=== PATIENT | male | born 1950 | race Caucasian/White ===

== ENCOUNTER 2023-11-22 17:17 | Emergency (ER) | payer MEDICARE, SELFPAY ==
[2023-11-22 17:23] VITALS: PULSE 78; TEMP 36.5; O2SAT 96; BMI 26.4
[2023-11-22 17:32] LABS: Glucose Point of Care 302 mg/dL (70-110)
--- NOTE | 2023-11-22 18:55 | W.ED.FALL ---
HPI - Fall General: Chief Complaint: Fall Stated Complaint: fall(11/21/23), hand and feet numb Time Seen by Provider: 11/22/23 18:53 Course Vital Signs: Vital signs: Vital Signs Temperature 97.7 F 11/22/23 17:23 Pulse Rate 78 11/22/23 17:23 Pulse Oximetry 96 11/22/23 17:23 Oxygen Delivery Me thod Room Air 11/22/23 17:23 MDM - Fall Lab Data Laboratory Results POC Glucose 302 mg/dL (70-110) H 11/22/23 17:30 Discharge Plan Discharge Condition: Stable Coding Level of Care Code ED Boiler/Chiller Operator for Roopa Ortiz
--- NOTE | 2023-11-22 20:04 | ED_ITS ---
HPI - Fall 2 General: Chief Complaint: Fall Stated Complaint: fall(11/21/23), hand and feet numb Time Seen by Provider: 11/22/23 18:53 History of Present Illness: 73-year-old male patient comes in today at the urgency of his female significant other. Patient had fallen yesterday when he stumbled. Patient reports that he has been having some high blood sugars and some increased numbness in his feet and hands. Patient does have known diabetic neuropathy. Patient denies any other complaints. Patient reports no fever or chills or difficulty breathing. Patient appears nontoxic. Review of Systems 2 General: Reports: 10 or more systems reviewed and unremarkable except in HPI and below Physical Exam 2 Const: COMMON NORMALS: alert HENMT: COMMON NORMALS: normocephalic HEAD & SCALP: normocephalic Neck/C-Spine: COMMON NORMALS: full ROM Resp: COMMON NORMALS: normal respiratory effort and clear to auscultation bilaterally AUSCULTATION: clear to auscultation bilaterally Cardio: COMMON NORMALS: regular rate and regular rhythm RATE: regular rate RHYTHM: regular rhythm Back/Pelvis: COMMON NORMALS: thoracic and lumbar spine normal to inspection Extremity: COMMON NORMALS: full ROM Neuro: SENSORIUM/ORIENTATION: Yes alert Skin: COMMON NORMALS: turgor normal GENERAL SKIN EXAM: turgor normal Course 2 Vital Signs: Vital signs: Vital Signs Temperature 97.7 F 11/22/23 17:23 Pulse Rate 78 11/22/23 17:23 Pulse Oximetry 96 11/22/23 17:23 Oxygen Delivery Me thod Room Air 11/22/23 17:23 MDM - Fall Medical Decision Making 73-year-old male patient comes in today for complaints of numbness in his hands and feet and difficulty walking at times. Patient is also reports some increase in his blood glucose. On exam respirations are even lungs are clear to auscultation. Patient moves all extremities well. Equal strength in hands and feet are noted. Differential diagnosis includes but not limited to uncontrolled diabetes mellitus, diabetic ketoacidosis, diabetic neuropathy, anxiety about health. Laboratory values were unremarkable except for blood glucose of 300. Reviewed exam with patient with recommendations for adjustment of insulin with primary care. Recommend return to the ER for new concerns. Discussed the use of walker to prevent and help with falls. Lab Data 11/22/23 19:52 11/22/23 19:52 Laboratory Results WBC 9.01 10^3/uL (3.29-11.43) 11/22/23 19:52 RBC 5.58 10^6/uL (3.85-5.65) 11/22/23 19:52 Hgb 16.10 g/dL (11.27-16.99) 11/22/23 19:52 Hct 48.2 % (37-53) 11/22/23 19:52 MCV 86.4 fl (82-101) 11/22/23 19:52 MCH 28.9 pg (27-33) 11/22/23 19:52 MCHC 33.4 g/dL (30-55) 11/22/23 19:52 RDW 12.5 % (12.1-15.1) 11/22/23 19:52 Plt Count 335 10^3/cmm (157-399) 11/22/23 19:52 MPV 9.8 fL (7.4-10.4) 11/22/23 19:52 Neut % (Auto) 64.9 % 11/22/23 19:52 Lymph % (Auto) 22.1 % 11/22/23 19:52 [place] % (Auto) 8.1 % 11/22/23 19:52 Eos % (Auto) 3.4 % 11/22/23 19:52 Baso % (Auto) 1.2 % 11/22/23 19:52 Neut # (Auto) 5.84 10^3/uL (1.8-7.7) 11/22/23 19:52 Lymph # (Auto) 2.0 10^3/uL (0.8-4.8) 11/22/23 19:52 [place] # (Auto) 0.7 10^3/uL (0.2-0.9) 11/22/23 19:52 Eos # (Auto) 0.3 10^3/uL (0.0-0.8) 11/22/23 19:52 Baso # (Auto) 0.1 10^3/uL (0.0-0.1) 11/22/23 19:52 Nucleated RBC % (auto) 0 % 11/22/23 19:52 Nucleated RBCs # 0.0 /100WBC 11/22/23 19:52 Sodium 136 mmol/L (136-145) 11/22/23 19:52 Potassium 4.6 mmol/L (3.5-5.1) 11/22/23 19:52 Chloride 99 mmol/L (98-107) 11/22/23 19:52 Carbon Dioxide 24 mmol/L (22-29) 11/22/23 19:52 Anion Gap 17.6 (5-19) 11/22/23 19:52 BUN 22 mg/dL (8-23) 11/22/23 19:52 Creatinine 0.8 mg/dL (0.7-1.2) 11/22/23 19:52 GFR Calculation Not Reportable 11/22/23 19:52 Glucose 313 mg/dL (65-115) H 11/22/23 19:52 POC Glucose 302 mg/dL (70-110) H 11/22/23 17:30 Calculated Osmolality 297 mOsm/kg (285-295) H 11/22/23 19:52 Calcium 9.4 mg/dL (8.5-10.5) 11/22/23 19:52 Total Bilirubin 0.7 mg/dL (0.15-1.2) 11/22/23 19:52 AST 22 U/L (0-40) 11/22/23 19:52 ALT 23 U/L (0-41) 11/22/23 19:52 Alkaline Phosphatase 75 U/L (40-130) 11/22/23 19:52 Total Protein 8.0 g/dL (6.6-8.7) 11/22/23 19:52 Albumin 4.3 g/dL (3.5-5.2) 11/22/23 19:52 Globulin 3.7 g/dL (1.3-4.6) 11/22/23 19:52 Urine Color Yellow (Yellow) 11/22/23 17:00 Urine Appearance Clear (CLEAR) 11/22/23 17:00 Urine pH 6 (5-7) 11/22/23 17:00 Ur Specific [place] 1.025 (1.005-1.030) 11/22/23 17:00 Urine Protein Neg (Negative) 11/22/23 17:00 Urine Glucose (UA) 4+ (Normal) H 11/22/23 17:00 Urine Ketones Negative (Negative) 11/22/23 17:00 Urine Blood Neg (Negative) 11/22/23 17:00 Urine Nitrate Negative (Negative) 11/22/23 17:00 Urine Bilirubin Neg (Negative) 11/22/23 17:00 Urine Urobilinogen Norm mg/dL (Negative) 11/22/23 17:00 Ur Leukocyte Esterase Negative (Negative) 11/22/23 17:00 Serum Ketones Negative (Negative) 11/22/23 19:52 No radiology studies performed this visit Discharge Plan Discharge Patient Disposition: Home Clinical Impression: Diabetic neuropathy Qualifiers: Diabetes mellitus type: type 2 Diabetes mellitus complication detail: diabetic polyneuropathy Qualified Code(s): E11.42 - Type 2 diabetes mellitus with diabetic polyneuropathy Condition: Stable Discharge Orders: Discharge ED (Routine); Ordered 11/22/23 Ordered By: Bryant Molina Discharge Diet: Usual diet Discharge Activity: Increase activity as tolerated Patient Instructions: Diabetic Neuropathy (ED) Activity Restrictions/Additional Instructions: Follow-up with primary care in the morning to discuss changes in your medication for better glucose control. Return to ER for new concerns or worsening symptoms such as fever greater than 100.4, severe chest pain, or shortness of breath. Coding Level of Care Code ED Interior Design Assistant for Roopa Ortiz
[2023-11-22 20:09] LABS: Basophils # 0.1 10^3/uL (0.0-0.1); Basophils % 1.2 %; Eosinophils # 0.3 10^3/uL (0.0-0.8); Eosinophils % 3.4 %; Hematocrit 48.2 % (37-53); Lymphocytes % 22.1 %; Mean Corpuscular HGB Conc 33.4 g/dL (30-55); Mean Corpuscular Hemoglobin 28.9 pg (27-33); Mean Corpuscular Volume 86.4 fl (82-101); Mean Platelet Volume 9.8 fL (7.4-10.4); Monocytes # 0.7 10^3/uL (0.2-0.9); Monocytes % 8.1 %; Neutrophils # 5.84 10^3/uL (1.8-7.7); Neutrophils % 64.9 %; Nucleated Red Blood Cells % 0 %; Platelet Count 335 10^3/cmm (157-399); Red Blood Count 5.58 10^6/uL (3.85-5.65); Red Cell Distribution Width 12.5 % (12.1-15.1); White Blood Count 9.01 10^3/uL (3.29-11.43)
[2023-11-22 20:14] LABS: Add Urine Microscopic? NO; Charge for UA Resulting for Rev
[2023-11-22 20:16] LABS: Bilirubin Urine Neg (Negative); Blood Urine Neg (Negative); Glucose Urine UA 4+ (Normal); Ketones Urine Negative (Negative); Leukocyte Esterase Urine Negative (Negative); Nitrate Urine Negative (Negative); Protein Urine Neg (Negative); Specific Gravity, Urine 1.025 (1.005-1.030); Urine Appearance Clear (CLEAR); Urine Color Yellow (Yellow); Urobilinogen Urine Norm (Negative); pH Urine 6 (5-7)
[2023-11-22 20:31] LABS: Ketone (Acetest) Serum Negative (Negative)
[2023-11-22 20:33] LABS: Alanine Aminotransferase 23 U/L (0-41); Albumin Level 4.3 g/dL (3.5-5.2); Alkaline Phosphatase 75 U/L (40-130); Anion Gap 17.6 (5-19); Aspartate Amino Transferase 22 U/L (0-40); Blood Urea Nitrogen 22 mg/dL (8-23); Calcium 9.4 mg/dL (8.5-10.5); Carbon Dioxide 24 mmol/L (22-29); Chloride 99 mmol/L (98-107); Creatinine Clr Calc Pharmacy 100.8972; Globulin 3.7 g/dL (1.3-4.6); Glucose 313 mg/dL (65-115); Osmolality Calculated 297 mOsm/kg (285-295); Potassium 4.6 mmol/L (3.5-5.1); Sodium 136 mmol/L (136-145); Total Bilirubin 0.7 mg/dL (0.15-1.2)
[2023-11-22 21:25] VITALS: BP 125/53; PULSE 69; RESP 18; O2SAT 97
== END 2023-11-22 21:26 | disposition home or self-care (01) ==
PROVIDERS: Emergency Provider Nurse Practitioner Family
DX: E11.42 Type 2 diabetes mellitus with diabetic polyneuropathy (principal)
CPT/HCPCS: 36415; 36416; 80053; 81003; 82009; 82962; 85025; 99283

== ENCOUNTER 2024-01-12 20:34 | Emergency (ER) | payer MEDICARE, SELFPAY ==
[2024-01-12 20:35] VITALS: BP 141/89; PULSE 66; RESP 18; TEMP 36.6; O2SAT 94; BMI 22.4
[2024-01-12 20:45] LABS: Glucose Point of Care 267 mg/dL (70-110)
--- NOTE | 2024-01-12 20:48 | XRR_ITS ---
PROCEDURE INFORMATION: Exam: XR Right Knee Exam date and time: 01/12/2024 8:53 PM Age: 73 years old Clinical indication: Right; Patient HX: RT knee pain post fall TECHNIQUE: Imaging protocol: Radiologic exam of the right knee. Views: 3 views. COMPARISON: No relevant prior studies available. FINDINGS: Bones/joints: Small to moderate-sized joint effusion. Soft tissues: Infrapatellar soft tissue swelling concerning for patellar tendon injury. Other findings: [place]-Schlatter's disease. XR/XR knee RT 3V* [id number] IMPRESSION: 1. Small to moderate-sized joint effusion. 2. [place]-Schlatter's disease. 3. Infrapatellar soft tissue swelling concerning for patellar tendon injury.
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
--- NOTE | 2024-01-12 20:58 | XRR_ITS ---
PROCEDURE INFORMATION: Exam: XR Right Hip Exam date and time: 01/12/2024 8:59 PM Age: 73 years old Clinical indication: Injury or trauma; Patient HX: RT hip pain post fall TECHNIQUE: Imaging protocol: Radiologic exam of the right hip. Views: 1 view hip with pelvis when performed. COMPARISON: No relevant prior studies available. FINDINGS: Bones/joints: Unremarkable. No acute fracture. Soft tissues: Unremarkable. XR/XR hip RT 2-3V wo/w pel* [id number] IMPRESSION: No acute findings.
[2024-01-12 21:04] VITALS: BP 152/73; PULSE 73; RESP 18; O2SAT 93
[2024-01-12 21:43] VITALS: BP 141/80; PULSE 64; RESP 18; O2SAT 65
== END 2024-01-12 22:01 | disposition home or self-care (01) ==
PROVIDERS: Emergency Provider Emergency Medicine
DX: S80.01XA Contusion of right knee, initial encounter (principal); V89.2XXA Person injured in unspecified motor-vehicle accident, traffic, initial encounter
CPT/HCPCS: 36416; 73502; 73562; 82962; 99284